=== PATIENT | female | born 1965 | race Caucasian/White ===

== ENCOUNTER → 2018-05-03 | Outpatient (CLI) | payer BC ==
[2018-05-03 11:59] LABS: ABSOLUTE BASOPHILS # (AUTO) 0.1 10^3/uL (0.0-0.2); ABSOLUTE EOSINOPHILS # (AUTO) 0.6 10^3/uL (0.0-0.6); ABSOLUTE LYMPHOCYTES (AUTO) 2.4 10^3/uL (0.5-4.7); ABSOLUTE MONOCYTES (AUTO) 0.6 10^3/uL (0.1-1.4); ABSOLUTE NEUT (AUTO) 4.6 10^3/uL (1.7-8.2); BASOPHILS % (AUTO) 1.1 % (0-2); EOSINOPHILS % (AUTO) 7.3 % (0-6); HEMATOCRIT 41.4 % (36.0-47.0); HEMOGLOBIN 14.1 g/dL (12.0-15.5); LYMPHOCYTES % (AUTO) 28.4 % (13-45); MEAN CORPUSCULAR HEMOGLOBIN 28.6 pg (27.0-33.4); MEAN CORPUSCULAR VOLUME 84 fl (80-97); MONOCYTES % (AUTO) 7.5 % (3-13); PLATELET COUNT 265 10^3/uL (150-450); RED BLOOD COUNT 4.91 10^6/uL (3.72-5.28); SEGMENTED NEUTROPHILS % (AUTO) 55.7 % (42-78); TOTAL CELLS COUNTED % (AUTO) 100 %; WHITE BLOOD COUNT 8.3 10^3/uL (4.0-10.5)
[2018-05-03 12:31] LABS: ALANINE AMINOTRANSFERASE 26 U/L (9-52); ALBUMIN 3.9 g/dL (3.5-5.0); ALKALINE PHOSPHATASE 86 U/L (38-126); ANION GAP 13 (5-19); ASPARTATE AMINO TRANSFERASE 25 U/L (14-36); BILIRUBIN,DIRECT 0.2 mg/dL (0.0-0.4); BILIRUBIN,TOTAL 0.5 mg/dL (0.2-1.3); BLOOD UREA NITROGEN 12 mg/dL (7-20); C-REACTIVE PROTEIN 16.8 mg/L (<10.0); CALCIUM 9.3 mg/dL (8.4-10.2); CARBON DIOXIDE 26 mmol/L (22-30); CHLORIDE 104 mmol/L (98-107); GLUCOSE 121 mg/dL (75-110); POTASSIUM 4.1 mmol/L (3.6-5.0); SODIUM 142.5 mmol/L (137-145); TOTAL PROTEIN 7.1 g/dL (6.3-8.2)
[2018-05-03 12:36] LABS: ERYTHROCYTE SEDIMENTATION RATE 30 mm/hr (0-30)
--- NOTE | 2018-05-03 13:58 | RADIOLOGY REPORT (SQ) ---
EXAM DESCRIPTION: FOOT BILATERAL 3 VIEWS COMPLETED DATE/TIME: 05/03/2018 11:43 am REASON FOR STUDY: NON-PRS CHR ULCER OTH PRT LT FOOT W NECROSIS OF BONE/RT FOOT W UNSP SEVERIT L97.52 4 NON-PRS CHRONIC ULCER OTH PRT LEFT FOOT W NECROSIS O L97.519 NON-PRS CHRONIC ULCER OTH PRT RIGHT FOOT W UNSP [place] COMPARISON: None. NUMBER OF VIEWS: Three views. TECHNIQUE: AP, lateral and oblique radiographic images acquired of the right and left foot. LIMITATIONS: None. FINDINGS: Overall normal bone density. On the right and left sides, subacute to chronic appearing fractures at the base of the 5th metatarsa ls are present with 3 to 4 mm gap between the fracture fragment and remainder of the 5th metatarsal. Advanced joint space narrowing with bony spurring at the left 2nd and 3rd tarsometatarsal joints. On the right side, partial bony resorption of the 3rd toe distal phalanx is present with mild soft ti ssue swelling. This could indicate active osteomyelitis. On the left side, the distal 3rd toe exhibits a soft tissue ulcer and diffuse soft tissue swelling. Near complete resorption of the 3rd toe distal phalanx is present worrisome for osteomyelitis. 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 TECHNICAL DOCUMENTATION: JOB ID: [id number] [employer]- All Rights Reserved Reading location - IP/workstation name: [facility]
== END ==
LOC: OD 11:12
PROVIDERS: ATTEND Preventive Medicine Undersea and Hyperbaric Medicine
DX: E11.621 Type 2 diabetes mellitus with foot ulcer (principal); L97.524 Non-pressure chronic ulcer of other part of left foot with necrosis of bone
CPT/HCPCS: 36415; 80053; 83036; 85025; 85652; 86140

== ENCOUNTER → 2018-05-07 | Outpatient (CLI) | payer BC ==
--- NOTE | 2018-05-08 11:27 | XCELERA REPORT ---
[address] [address] Lower Extremity Arterial Evaluation Name: BARBARA ARIAS Age: 53 yrs Gender: Female : 1965 Patient Status: Outpatient Patient Location: Study Date: 05/07/2018 01:21 PM Procedure: A color flow and duplex scan of the lower extremity arteries was performed bilaterally with velocity and waveform anaylsis. Ankle brachial indicies performed. Reason For Study: ULCER Ordering Physician: INES ZAIDI Performed By: Ozzie Fuentes Measurements and Calculations Right Left DIRECTOR OF INTELLIGENCE PSV 138.8 128.5 cm/sec Prox PFA PSV -84.9 59.4 cm/sec Prox SFA PSV 115.9 94.3 cm/sec Mid SFA PSV -95.9 -96.5 cm/sec Dist SFA PSV -69.4 -110.3 cm/sec Prox Pop A PSV 73.3 64.4 cm/sec Dist JOAQUIN PSV 119.7 95.9 cm/sec Dist ROUSTABOUT PUSHER PSV 100.2 133.3 cm/sec Oumar Pedis PSV 116.3 -155.0 cm/sec Right Side Arterial Evaluation Normal velocity and triphasic waveforms noted from the Common Femoral artery to the infrageniculate vessels. Biphasic in the Dorsalis Pedis. 0-19% stenosis at the Dorsalis Pedis. artery. Ankle Brachial index is 1.09. Left Side Arterial Evaluation Normal velocity and triphasic waveforms noted from the Common Femoral artery to the Popliteal. Biphasic with normal velocity in the infrageniculate vessels. 0-19% stenosis at the infrageniculate vessels. Ankle Brachial index is 1.20. Interpretation Summary Mild hemodynamically significant lesions in the bilateral lower extremities, on duplex imaging, at rest. : INES ZAIDI > Cecliio Andrade
== END ==
LOC: SP 12:57
PROVIDERS: ATTEND Preventive Medicine Undersea and Hyperbaric Medicine
DX: L97.524 Non-pressure chronic ulcer of other part of left foot with necrosis of bone (principal)
CPT/HCPCS: 93922; 93925

== ENCOUNTER → 2018-05-31 | Outpatient (CLI) | payer BC ==
--- NOTE | 2018-05-31 15:21 | RADIOLOGY REPORT (SQ) ---
EXAM DESCRIPTION: FOOT LEFT COMPLETE COMPLETED DATE/TIME: 05/31/2018 2:50 pm REASON FOR STUDY: NON-PRS CHRONIC ULCER OTH PRT LEFT FOOT W FAT LAYER EXPOSED L97.522 NON-PRS CHRON IC ULCER OTH PRT LEFT FOOT W FAT LAYER COMPARISON: Left foot films 05/03/2018 NUMBER OF VIEWS: Three views. TECHNIQUE: AP, lateral and oblique radiographic images acquired of the left foot. LIMITATIONS: None. FINDINGS: Focal soft tissue swelling is present along the distal tip of the 3rd toe. There is been resorption of the 3rd toe distal phalanx tuft from prior osteomyelitis. Since the images from 018, there has been re- mineral is station at the base, 3rd toe proximal phalanx indicating healing. A nonunited chronic appearing 5th metatarsal fracture is present extending into the 5th tarsometatars al joint. Joint space narrowing, bony spurring, articular surface irregularity at the bases of the 2nd and 3rd metatarsals. Dorsal bulky bony spurring at these joints with fragmentation at the base of the 2nd me tatarsal worrisome for neuropathic foot or Charcot foot. No Lisfranc subluxation of the tarsometatar betina joints. Diffuse forefoot soft tissue swelling is present without radiopaque foreign body or soft tissue gas. IMPRESSION: Healing osteomyelitis at the 3rd toe distal phalanx. 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
== END ==
LOC: RAD 14:20
PROVIDERS: ATTEND Preventive Medicine Undersea and Hyperbaric Medicine
DX: L97.522 Non-pressure chronic ulcer of other part of left foot with fat layer exposed (principal)